=== PATIENT | female | born 1970 | race Caucasian/White ===

== ENCOUNTER 2023-01-20 08:40 | Outpatient (CLI) | payer MEDICARE, OTHER | END 2023-01-20 08:41 | disposition home or self-care (01) | LOC: RAD 08:40 | PROVIDERS: ATTEND Internal Medicine Critical Care Medicine | DX: R06.00 Dyspnea, unspecified (principal); J98.4 Other disorders of lung | CPT/HCPCS: 36415; 71046; 82103; 82104 ==